=== PATIENT | male | born 1985 | race American Indian/Alaskan Native ===

== ENCOUNTER 2021-06-03 16:14 | Emergency (ER) | payer SELFPAY ==
[2021-06-03] MEDS ORDERED: dexAMETHasone 20 MG/5 ML VIAL IV ONE (18:00)
[2021-06-03] MEDS ORDERED: ACETAMINOPHEN 325 MG/10.15 ML ORAL LIQD UNIT DOSE PO ONE (18:00)
[2021-06-03] MEDS ORDERED: SODIUM CHLORIDE 0.9% 1000 ML 1,000 ML IV ONE (18:00)
[2021-06-03] MEDS ORDERED: CLINDAMYCIN 600 MG/50 mL 600 MG/50 ML BAG IV ONE (18:00)
[2021-06-03] MEDS ORDERED: MORPHINE 4 MG/1 ML INJ IV ONE (18:01)
[2021-06-03] MEDS ORDERED: ONDANSETRON 4 MG/2 ML INJ IV ONE (18:01)
[2021-06-03 18:34] LABS: Basophils % (Auto) 0.3 % (0.0-1.8); Eosinophils % (Auto) 0.1 % (0.0-4.3); Hemoglobin 13.5 gm/dl (11.8-15.2); Lymphocytes # (Auto) 0.9 K/mm3 (1.2-5.4); Mean Corpuscular HGB Conc 32 % (32-34); Mean Corpuscular Volume 91 fl (84-94); Monocytes # (Auto) 1.8 K/mm3 (0.0-0.8); Monocytes % (Auto) 12.1 % (0.0-7.3); Platelet Count 277 K/mm3 (140-440); Red Blood Count 4.63 M/mm3 (3.65-5.03); Red Cell Distribution Width 14.7 % (13.2-15.2)
--- NOTE | 2021-06-03 18:50 | Emergency Department Report ---
<LANEY PARKER - Last Filed: 06/03/21 20:49> ED ENT HPI - General Chief complaint: Sore Throat Stated complaint: SWOLLEN LYMPH NODES Time Seen by Provider: 06/03/21 17:52 Source: patient Mode of arrival: Ambulatory Limitations: No Limitations - History of Present Illness Initial comments: Patient is a 36-year-old male presents emergency room complaints of a sore throat that began 3 days ago. He reports that he feels swelling in the throat and has a swollen lymph node. Patient states he has associated discomfort with swallowing. He states he is having difficulty swallowing but is able to tolerate liquids. He states he is not tolerating solids very well secondary to pain. he has associated fever. He denies ever having this in the past. He denies any vomiting, cough, shortness of breath. No allergies to medicines. Past medical history of hypertension. - Related Data Previous Rx's Medication Instructions Recorded Last Taken Type Clindamycin [Clindamycin CAP] 300 mg PO Q8H 10 Days #30 cap 06/04/21 Unknown Rx dexAMETHasone [Decadron] 8 mg PO QDAY 7 Days #14 tablet 06/04/21 Unknown Rx Allergies Allergy/AdvReac Type Severity Reaction Status Date / Time No Known Allergies Allergy Verified 06/03/21 21:26 ED Dental HPI - General Chief complaint: Sore Throat Stated complaint: SWOLLEN LYMPH NODES Time Seen by Provider: 06/03/21 17:52 Source: patient Mode of arrival: Ambulatory Limitations: No Limitations - Related Data Previous Rx's Medication Instructions Recorded Last Taken Type Clindamycin [Clindamycin CAP] 300 mg PO Q8H 10 Days #30 cap 06/04/21 Unknown Rx dexAMETHasone [Decadron] 8 mg PO QDAY 7 Days #14 tablet 06/04/21 Unknown Rx Allergies Allergy/AdvReac Type Severity Reaction Status Date / Time No Known Allergies Allergy Verified 06/03/21 21:26 ED Review of Systems Comment: All other systems reviewed and negative ED Past Medical Hx - Past Medical History Hx Hypertension: Yes - Surgical History Past Surgical History?: No - Medications Home Medications: Home Medications Medication Instructions Recorded Confirmed Last Taken Type Clindamycin [Clindamycin CAP] 300 mg PO Q8H 10 Days #30 cap 06/04/21 Unknown Rx dexAMETHasone [Decadron] 8 mg PO QDAY 7 Days #14 tablet 06/04/21 Unknown Rx ED Physical Exam - General Limitations: No Limitations General appearance: alert, in no apparent distress - Head Head exam: Present: atraumatic, normocephalic - ENT ENT exam: Present: mucous membranes moist, other (bilateral tonsillar hypertrophy and exudates, there is left sided soft palate edema, uvula is midline, no uvular edema or deviation, no tongue elevation, airway is intact) - Neck Neck exam: Present: lymphadenopathy (left anterior cervical) - Respiratory Respiratory exam: Present: normal lung sounds bilaterally. Absent: respiratory distress, wheezes, rales, rhonchi, stridor, chest wall tenderness, accessory muscle use, decreased breath sounds, prolonged expiratory - Cardiovascular Cardiovascular Exam: Present: normal rhythm, tachycardia (mildly) - Neurological Exam Neurological exam: Present: alert, oriented X3 - Psychiatric Psychiatric exam: Present: normal affect, normal mood - Skin Skin exam: Present: warm, dry, intact ED Medical Decision Making - Lab Data Result diagrams: 06/03/21 18:20 06/03/21 18:20 - Radiology Data Radiology results: report reviewed Ordering Physician: MAURICE ANDERSON Date of Service: 06/03/21 Procedure(s): CT neck w con Accession Number(s): [id number] cc: MAURICE ANDERSON CT neck w con INDICATION / CLINICAL INFORMATION: 36 years Male; sore throat, muffled voice, left peritonsillar. TECHNIQUE: Contiguous thin cut axial images obtained through the neck following IV contrast. Sagittal and coronal reconstructions performed by the technologist. All CT scans at this location are performed using CT dose reduction for ALARA by means of automated exposure control. COMPARISON: None available. FINDINGS: MUCOSAL SPACE: There is extensive ill-defined decrease attenuation centered within the left palatine soft tissues extending inferiorly to the supraglottic region with notable area measuring approximately 4.4 cm in sagittal dimension at. This finding would be most consistent with developing abscess given the history at. There is also edema extending superiorly with effacement of the left eustachian tube. There is also moderate narrowing of the oral pharyngeal airway at the level the palatine tonsils at. The epiglottis appears appropriate in size. There appears to be a more defined cystic lesion, asymmetric toward the right situated between the hyoid bone and thyroid cartilage measuring approximately 1.0 cm AP by 2.8 cm transverse. 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 There also appears to be incidental left sided laryngocele. LYMPH NODES: There is associated notable reactive lymphadenopathy, particularly within the jugulodigastric regions with the largest node measuring 1.5 cm in short axis dimension. SALIVARY GLANDS: The visualized parotid and submitted ventricular glands demonstrate fairly symmetric attenuation without calcification. THYROID GLAND: Unremarkable. PARANASAL SINUSES: Visualized paranasal sinuses and mastoid air cells are essentially clear. SPINE: No significant abnormality of the cervical spine appreciated. VASCULAR STRUCTURES: Vascular structures are grossly normal in appearance. IMPRESSION: 1. The findings are compatible with developing peritonsillar abscess with infer ior extension as detailed above. There is also associated reactive lymphadenopathy. 2. There is more well-defined cystic lesion lateralizing toward the right most consistent with an incidental thyroglossal duct cyst as detailed above. Signer Name: Coy Reyes MD Signed: 06/03/2021 8:02 PM Workstation Name: [id number] Transcribed By: MR Dictated By: Coy Reyes MD Electronically Authenticated By: Coy Reyes MD Signed Date/Time: 06/03/212001 DD/ 53 TD/TT: - Medical Decision Making Patient is a 36-year-old male presents emergency room complaints of a sore throat that began 3 days ago. He reports that he feels swelling in the throat and has a swollen lymph node. Patient states he has associated discomfort with swallowing. He states he is having difficulty swallowing but is able to tolerate liquids. He states he is not tolerating solids very well secondary to pain. he has associated fever. He denies ever having this in the past. He denies any vomiting, cough, shortness of breath. No allergies to medicines. Past medical history of hypertension. Vitals with mild fever and tachycardia which improved upon Tylenol administration. On exam:bilateral tonsillar hypertrophy and exudates, there is left sided soft palate edema, uvula is midline, no uvular edema or deviation, no tongue elevation, airway is intact. Lab significant for leukocytosis and positive rapid strep. Lactic acid is normal. CT neck with contrast 1. The findings are compatible with developing peritonsillar abscess with inferior extension as detailed above. There is also associated reactive lymphadenopathy. 2. There is more well-defined cystic lesion lateralizing toward the right most consistent with an incidental thyroglossal duct cyst as detailed above. Discussed case with Dr. Herrera, ER attending who will take over care of patient ED Disposition Clinical Impression: Strep throat Disposition: HOME / SELF CARE / HOMELESS Condition: Stable Instructions: Strep Throat, Adult, [id number], Pharyngitis, [id number] Additional Instructions: If you notice it is becoming harder for you to breathe or swallow please return to the emergency department immediately. Prescriptions: Clindamycin [Clindamycin CAP] 300 mg PO Q8H 10 Days #30 cap dexAMETHasone [Decadron] 8 mg PO QDAY 7 Days #14 tablet Referrals: PRIMARY CAREMD [Primary Care Provider] - 3-5 Days CAMILO MASSEY MD [Staff Physician] - [facility] Forms: Work/School Release Form(ED) <ASAD HERRERA - Last Filed: 06/04/21 01:00> ED Review of Systems ROS: Stated complaint: SWOLLEN LYMPH NODES Other details as noted in HPI ED Course Vital Signs 06/03/21 06/03/21 06/03/21 17:00 18:35 19:03 Temperature 100.4 F H 99.4 F Pulse Rate 103 H 89 Respiratory 18 14 14 Rate Blood Pressure 146/83 Blood Pressure 132/75 [Left] O2 Sat by Pulse 97 98 Oximetry - Reevaluation(s) Reevaluation #2: 06/04/21 00:46 And is tolerating p.o. with no issue. He has eaten pizza has no issues with his secretions or the food. Patient to be discharged on Clinda and steroids and should return if he has any worsening of his respiratory status. - Consultations Consultation #1: 06/03/21 23:47 I discussed patient care with ENT on-call at [place]. They were very helpful and we discussed both clinical presentation as well as patient CT scan. He recommends that we continue outpatient management with steroids and clindamycin. Patient to be discharged with close follow-up. - I & D Left Type of Procedure: Simple Site: L peritonsilar area Blade Size: 18 ga needle Progress: Attempted needle aspiration of developing peritonsillar abscess. Unsuccessful in obtaining any pus. Patient had a small amount of bleeding which has since resolved after 6 suctioning and ice water gargles. Patient received Hurricaine spray as well as viscous lidocaine prior to procedure. ED Medical Decision Making - Lab Data Result diagrams: 06/03/21 18:20 06/03/21 18:20 Critical care attestation.: If time is entered above; I have spent that time in minutes in the direct care of this critically ill patient, excluding procedure time. ED Disposition Is pt being admited?: No Does the pt Need Aspirin: No Time of Disposition: 00:55
[2021-06-03 18:58] LABS: Alanine Aminotransferase 14 units/L (7-56); Albumin 4.1 g/dL (3.9-5); BUN/Creatinine Ratio 14; Blood Urea Nitrogen 17 mg/dL (9-20); Calcium 9.5 mg/dL (8.4-10.2); Hemolysis Index 11
--- NOTE | 2021-06-03 20:06 | Cat Scan Report ---
CT neck w con INDICATION / CLINICAL INFORMATION: 36 years Male; sore throat, muffled voice, left peritonsillar. TECHNIQUE: Contiguous thin cut axial images obtained through the neck following IV contrast. Sagittal and mcguire l reconstructions performed by the technologist. All CT scans at this location are performed using CT dose reduction for ALARA by means of automated exposure control. COMPARISON: None available. FINDINGS: MUCOSAL SPACE: There is extensive ill-defined decrease attenuation centered within the left palatine soft tissues extending inferiorly to the supraglottic region with notable area measuring approximatel y 4.4 cm in sagittal dimension at. This finding would be most consistent with developing abscess give n the history at. There is also edema extending superiorly with effacement of the left eustachian tub e. There is also moderate narrowing of the oral pharyngeal airway at the level the palatine tonsils a t. The epiglottis appears appropriate in size. There appears to be a more defined cystic lesion, asymmetric toward the right situated between the hy oid bone and thyroid cartilage measuring approximately 1.0 cm AP by 2.8 cm transverse. This finding w ould appear most consistent with incidental thyroglossal duct cyst. There also appears to be incident al left sided laryngocele. LYMPH NODES: There is associated notable reactive lymphadenopathy, particularly within the jugulodiga stric regions with the largest node measuring 1.5 cm in short axis dimension. SALIVARY GLANDS: The visualized parotid and submitted ventricular glands demonstrate fairly symmetric attenuation without calcification. THYROID GLAND: Unremarkable. PARANASAL SINUSES: Visualized paranasal sinuses and mastoid air cells are essentially clear. SPINE: No significant abnormality of the cervical spine appreciated. VASCULAR STRUCTURES: Vascular structures are grossly normal in appearance. IMPRESSION: 1. The findings are compatible with developing peritonsillar abscess with inferior extension as detai led above. There is also associated reactive lymphadenopathy. 2. There is more well-defined cystic lesion lateralizing toward the right most consistent with an inc idental thyroglossal duct cyst as detailed above. Signer Name: Coy Reyes MD Signed: 06/03/2021 8:02 PM Workstation Name: [id number]
[2021-06-03] MEDS ORDERED: BENZOCAINE 20% TOP SPRAY 0.5 ML UNIT DOSE MM NR (22:00)
[2021-06-03] MEDS ORDERED: LIDOCAINE VISCOUS 2% 15 ML ORAL LIQD PO ONE (22:06)
[2021-06-04 01:15] VITALS: BP 145/76
== END 2021-06-04 01:15 | disposition home or self-care (01) ==
LOC: ED 16:14
DX: J36 Peritonsillar abscess (principal); I10 Essential (primary) hypertension; Z79.899 Other long term (current) drug therapy
CPT/HCPCS: 36415; 42700; 70491; 80053; 82140; 85025; 87430; 96365; 96375; 99284; J1100; J2270; J2405; J7030; J7502; Q9967; Q0162

== ENCOUNTER 2021-06-04 18:51 | Emergency (ER) | payer SELFPAY ==
[2021-06-04 19:03] VITALS: BP 166/97
--- NOTE | 2021-06-04 21:09 | Emergency Department Report ---
ED General Adult HPI - General Chief complaint: Sore Throat Stated complaint: DIFF IN SWALLOWING PUI?: No Time Seen by Provider: 06/04/21 21:07 Source: patient, RN notes reviewed, old records reviewed Mode of arrival: Ambulatory Limitations: No Limitations - History of Present Illness Initial comments: The patient is a 36-year-old gentleman. He was seen in this department yesterday for sore throat. He had an extensive work-up performed, including a strep screen which was positive, a CT scan of the neck which demonstrated d eveloping left-sided peritonsillar abscess. Aspiration was attempted by the prior ER physician, and was unsuccessful. He was given a trial of oral antibiotics, and steroids. The case was also discussed with an as[facility] raker [facility] the [facility]. Patient returns today with a complaint of worsening posterior oral pain, inability to swallow. He denies neck pain. He denies fever. He reports that he is occasionally vomiting and coughing up. He reports he has not been able to take any of the medications that were prescribed for him. He denies additional injuries or complaints -: Gradual, days(s) Location: mouth, neck Severity scale (0 -10): 10 Consistency: constant Improves with: rest Worsens with: eating - Related Data Previous Rx's Medication Instructions Recorded Last Taken Type Clindamycin [Clindamycin CAP] 300 mg PO Q8H 10 Days #30 cap 06/04/21 Unknown Rx dexAMETHasone [Decadron] 8 mg PO QDAY 7 Days #14 tablet 06/04/21 Unknown Rx Allergies Allergy/AdvReac Type Severity Reaction Status Date / Time No Known Allergies Allergy Verified 06/03/21 21:26 ED Review of Systems ROS: Stated complaint: DIFF IN SWALLOWING Other details as noted in HPI Constitutional: denies: fever Eyes: denies: eye discharge ENT: throat pain, congestion. denies: dental pain Respiratory: denies: cough Cardiovascular: denies: chest pain Gastrointestinal: nausea, vomiting. denies: abdominal pain Neurological: denies: weakness ED Past Medical Hx - Past Medical History Hx Hypertension: Yes - Medications Home Medications: Home Medications Medication Instructions Recorded Confirmed Last Taken Type Clindamycin [Clindamycin CAP] 300 mg PO Q8H 10 Days #30 cap 06/04/21 Unknown Rx dexAMETHasone [Decadron] 8 mg PO QDAY 7 Days #14 tablet 06/04/21 Unknown Rx ED Physical Exam - General Limitations: No Limitations General appearance: alert, anxious - Head Head exam: Present: atraumatic, normocephalic - Eye Eye exam: Present: normal appearance, EOMI. Absent: nystagmus - ENT ENT exam: Present: mucous membranes moist, TM's normal bilaterally, normal external ear exam, other (The patient is not stridulous. The patient is able to open up her mouth. There is left-sided tonsillar swelling. There is minimal deviation of the uvula to the right. There is minimal anterior cervical adenopathy which is tender. The neck is supple. Patient able to phonate with a muffled voice) - Neck Neck exam: Present: normal inspection, full ROM. Absent: tenderness, meningismus - Respiratory Respiratory exam: Present: normal lung sounds bilaterally. Absent: respiratory distress, wheezes, rales, rhonchi, stridor, decreased breath sounds - Cardiovascular Cardiovascular Exam: Present: regular rate, normal rhythm, normal heart sounds. Absent: bradycardia, tachycardia, irregular rhythm, systolic murmur, diastolic murmur, rubs, gallop - GI/Abdominal GI/Abdominal exam: Present: soft. Absent: distended, tenderness, guarding, rebound, rigid, pulsatile mass - Rectal Rectal exam: Present: deferred - Extremities Exam Extremities exam: Present: normal inspection, full ROM, other (2+ pulses noted in the bilateral upper extremities. There is no long bony tenderness peer) - Back Exam Back exam: Present: normal inspection. Absent: tenderness, CVA tenderness (R), CVA tenderness (L), paraspinal tenderness, vertebral tenderness - Neurological Exam Neurological exam: Present: alert, oriented X3, other (No facial droop. Tongue midline. Extraocular movements intact bilaterally. Facial sensation intact to light touch in V1, V2, V3 distribution bilaterally. 5 and a 5 strength in 4 extremities. Sensation intact to light touch in 4 extremities.) - Psychiatric Psychiatric exam: Present: anxious - Skin Skin exam: Present: warm, dry, intact, normal color. Absent: rash ED Course Vital Signs 06/04/21 19:02 Temperature 99.1 F Pulse Rate 88 Respiratory 22 Rate Blood Pressure 166/97 [Right] O2 Sat by Pulse 99 Oximetry - Reevaluation(s) Reevaluation #1: 12/18/21 22:31 Differential diagnosis, including but not limited to: Peritonsillar abscess, peritonsillar cellulitis, outpatient failure Assessment and plan: 36-year-old gentleman who was seen in this department about a day and a half ago with a known diagnosis of peritonsillar abscess. Aspiration was attempted by the initial ER provider and unsuccessful. The case was discussed with ENT at [facility] and it was decided that a trial of outpatient management will be attempted. Patient given antibiotics and steroids here in the emergency room, and discharged with the aforementioned. He presented with inability to tolerate liquid feeds. At the moment, he is awake, saturating well on room air, not stridulous, on his cell phone, with no active vomiting. However, given the progression of exam, worsening symptoms, inability to tolerate oral antibiotics, have recommended transfer to a facility that can provide ENT consultation and coverage. I discussed the patient's history, physical, prior laboratory studies, and imaging studies with Dr. Corona of ENT at [facility]. Dr Corona of ENT at [facility] to accept as a transfer. This patient has a potentially emergent condition at this time which cannot be definitively managed at this hospital, secondary to lack of ENT consultative services. Patient has provided consent for transfer. At the moment, he is awake, protecting his airway, hemodynamically stable, and suitable for transfer at this time for definitive management. 06/05/21 00:25 ED Medical Decision Making - Lab Data Vital Signs 06/04/21 19:02 Temperature 99.1 F Pulse Rate 88 Respiratory 22 Rate Blood Pressure 166/97 [Right] O2 Sat by Pulse 99 Oximetry - Radiology Data Radiology results: report reviewed, image reviewed [facility] [address] [place] [address] Cat Scan Report Signed Patient: PATRIC PATTERSON MR#: [id number] [birth year] : 1985 Acct:[id number] Age/Sex: 36 / M ADM Date: 06/03/21 Loc: ED Attending Dr: Anton monae Physician: MAURICE ANDERSON Date of Service: 06/03/21 Procedure(s): CT neck w con Accession Number(s): [id number] cc: MAURICE ANDERSON CT neck w con INDICATION / CLINICAL INFORMATION: 36 years Male; sore throat, muffled voice, left peritonsillar. TECHNIQUE: Contiguous thin cut axial images obtained through the neck following IV contrast. Sagittal and coronal reconstructions performed by the technologist. All CT scans at this location are performed using CT dose reduction for ALARA by means of automated exposure control. COMPARISON: None available. FINDINGS: MUCOSAL SPACE: There is extensive ill-defined decrease attenuation centered within the left palatine soft tissues extending inferiorly to the supraglottic region with notable area measuring approximately 4.4 cm in sagittal dimension at. This finding would be most consistent with developing abscess given the history at. There is also edema extending superiorly with effacement of the left eustachian tube. There is also moderate narrowing of the oral pharyngeal airway at the level the palatine tonsils at. The epiglottis appears appropriate in size. There appears to be a more defined cystic lesion, asymmetric toward the right situated between the hyoid bone and thyroid cartilage measuring approximately 1.0 cm AP by 2.8 cm transverse. 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 There also appears to be incidental left sided laryngocele. LYMPH NODES: There is associated notable reactive lymphadenopathy, particularly within the jugulodigastric regions with the largest node measuring 1.5 cm in short axis dimension. SALIVARY GLANDS: The visualized parotid and submitted ventricular glands demonstrate fairly symmetric attenuation without calcification. THYROID GLAND: Unremarkable. PARANASAL SINUSES: Visualized paranasal sinuses and mastoid air cells are essentially clear. SPINE: No significant abnormality of the cervical spine appreciated. VASCULAR STRUCTURES: Vascular structures are grossly normal in appearance. IMPRESSION: 1. The findings are compatible with developing peritonsillar abscess with inferior extension as detailed above. There is also associated reactive lymphadenopathy. 2. There is more well-defined cystic lesion lateralizing toward the right most consistent with an incidental thyroglossal duct cyst as detailed above. Signer Name: Coy Reyes MD Signed: 06/03/2021 8:02 PM Workstation Name: [id number] Transcribed By: MR Dictated By: Coy Reyes MD Electronically Authenticated By: Coy Reyes MD Signed Date/Time: 06/03/212001 DD/ 53 TD/TT: Critical care attestation.: If time is entered above; I have spent that time in minutes in the direct care of this critically ill patient, excluding procedure time. ED Disposition Clinical Impression: Strep throat, Peritoneal abscess Disposition: 02 [facility] Is pt being admited?: No Does the pt Need Aspirin: No Condition: Good Referrals: PRIMARY CARE, [Primary Care Provider] - 3-5 Days
[2021-06-04] MEDS ORDERED: CLINDAMYCIN 600 MG/50 mL 600 MG/50 ML BAG IV ONE (21:13)
[2021-06-04] MEDS ORDERED: ONDANSETRON 4 MG/2 ML INJ IV ONE (21:13)
[2021-06-04] MEDS ORDERED: SODIUM CHLORIDE 0.9% 500 ML 500 ML IV ONE (21:13)
[2021-06-04] MEDS ORDERED: MORPHINE 4 MG/1 ML INJ IV ONE (21:40)
[2021-06-05] MEDS ORDERED: ONDANSETRON 4 MG/2 ML INJ IV PRN (00:28)
[2021-06-05] MEDS ORDERED: MORPHINE 4 MG/1 ML INJ IV PRN (00:28)
[2021-06-05] MEDS ORDERED: LACTATED RINGERS 1,000 ML IV SCH (00:30)
[2021-06-05] MEDS ORDERED: CLINDAMYCIN 600 MG/50 mL 600 MG/50 ML BAG IV ONE (03:13)
== END 2021-06-05 07:57 | disposition short-term general hospital (02) ==
LOC: ED 18:51
DX: K65.1 Peritoneal abscess (principal); J02.0 Streptococcal pharyngitis; I10 Essential (primary) hypertension; Z79.899 Other long term (current) drug therapy
CPT/HCPCS: 96365; 96375; 99284; J2270; J2405; J7040; J7502